=== PATIENT | male | born 1965 | race Caucasian/White ===

== ENCOUNTER 2023-09-29 17:37 | Emergency (ER) | payer BC, SELFPAY ==
[2023-09-29 18:38] VITALS: BP 152/92; PULSE 58; RESP 24; TEMP 36.2; O2SAT 100; BMI 32.1
[2023-09-29] MEDS: IBUPROFEN 200 MG TABLET 400 MG PO (18:50)
[2023-09-29 19:11] LABS: Appearance Urine Cloudy (Clear); Bilirubin Urine Negative (Negative); Blood Urine 3+ (Negative); Color Urine Red (Yellow); Glucose Urine Trace (Negative); Ketones Urine 2+ (Negative); Leukocyte Esterase Urine Negative (Negative); Nitrite Urine Negative (Negative); Protein Urine 2+ (Negative); Urobilinogen Urine 0.2 (0.2-1.0); pH Urine 5.5 (5.0-8.5)
[2023-09-29 19:26] LABS: RBC Urine 50-100 (0-2)
[2023-09-29 19:27] LABS: Bacteria Urine Few; Fine Granular Casts Urine Moderate; Squamous Epithelial Cell Urine Few (None-Few); WBC Urine 0-2 (0-5)
[2023-09-29 21:31] VITALS: BP 162/99; PULSE 68; RESP 16; O2SAT 99
--- NOTE | 2023-09-29 21:32 | CRLHL7_ITS ---
For Patients: As a result of the Century Cures Act, medical imaging exams and procedure reports are released immediately into your electronic medical record. You may view this report before your referring provider. If you have questions, please contact your health care provider. INDICATION: Flank pain. TECHNIQUE: CT abdomen and pelvis without contrast. COMPARISON: None. FINDINGS: Lower chest: Unremarkable. Liver: Normal in size and attenuation. No suspicious masses. Gallbladder and bile ducts: No stones or inflammation. No biliary dilatation. Pancreas: Unremarkable. No mass or inflammation. Spleen: Normal in size. No masses. Adrenal glands: Normal in size. No nodules. Kidneys: A 2 mm stone at the left ureteropelvic junction is causing mild hydronephrosis. Few tiny stones remain in each kidney. GI tract: Unremarkable. Normal in caliber. No sign of mass or inflammation. Normal appendix. Vasculature: Abdominal aorta is normal in caliber. Lymph nodes: No lymphadenopathy. Peritoneum/Abdominal Wall: Unremarkable. No sign of mass or infiltration. No free air or significant free fluid. Pelvis: Unremarkable. No pelvic masses. Bones: Unremarkable for age. IMPRESSION: Small 2 mm stone at the left UPJ causing mild hydronephrosis. Please note that all CT scans at this facility use dose modulation, iterative reconstruction, and/or weight-based dosing when appropriate to reduce radiation dose to as low as reasonably achievable. Dictated by Niels Nails MD @ 09/29/2023 11:07:56 PM (Electronically Signed)
--- NOTE | 2023-09-29 22:00 | ED_ITS ---
HPI - General Adult General Date Seen: 09/29/23 Chief complaint: Flank Pain Stated complaint: Kidney stone likely-blood in urine Time Seen by Provider: 09/29/23 21:42 Source: patient and RN notes reviewed Mode of arrival: ambulatory Limitations: no limitations History of Present Illness HPI narrative: Patient is a 57-year-old male who presents for evaluation of left flank pain onset earlier today. He has a history of a kidney stone on the right remotely and this feels similar. He has had nausea but no vomiting, no urinary symptoms, has felt hot and cold but no documented fever no shaking chills. No urinary symptoms otherwise. General health is good. Related Data Previous Rx's Medication Instructions Recorded tamsulosin 0.4 mg capsule (Flomax) 0.4 mg PO DAILY #10 caps 09/29/23 Allergies Allergy/AdvReac Type Severity Reaction Status Date / Time No Known Drug Allergies Allergy Verified 09/29/23 18:43 Review of Systems Status of ROS: Reports: 6 or more systems reviewed and unremarkable except as noted in History and below PFSH PFSH Social History Non-prescribed substance use: denies use Exam Narrative: Exam Narrative: Vital signs as noted above. In general, an alert, nontoxic male, looks uncomfortable. Head: Normocephalic, atraumatic. Eyes: Pupils are equal reactive. Extraocular movements are full. Conjunctivae are normal. ENT: Mucous membranes are moist. Throat is normal. Neck: Supple without lymphadenopathy. Heart: Regular rate and rhythm. No murmur or rub. Lungs: Clear bilaterally. No increased work of breathing, crackles or wheezes. No CVA tenderness. Abdomen: Soft and nontender. No organomegaly. Extremities: Well perfused. No edema. No calf tenderness. Pulses intact. Neurologic: Patient is alert and oriented to person and place. Speech is fluent. Face is symmetric. Moves all extremities equally. Affect: Normal. Skin: Warm and dry. Well perfused. Const: Vital Signs, click to edit/add: Vital Signs - 24 hr 09/29/23 18:38 09/29/23 21:31 Temperature 97.2 F L Pulse Rate [Right Pulse Oximeter] 58 L 68 Respiratory Rate 24 16 Blood Pressure [Ri ght Upper Arm] 152/92 H 162/99 H Pulse Oximetry 100 99 Oxygen Delivery Me thod Room Air Room Air Documenting provider has reviewed patient's vital signs: yes Course Course ED Course: Patient had a UA obtained while he was in triage, this showed 50-100 red blood cells. I ordered CT scan, by my review this shows a 3 mm stone just distal to the UPJ on the left with some associated hydronephrosis. Renal cyst on the right. Radiology read pending. An IV will be placed, will give some Toradol and morphine as well as Zofran and fluids for symptomatic relief. UA does not show any evidence of infection. Final radiology read as follows:FINDINGS: Lower chest: Unremarkable. Liver: Normal in size and attenuation. No suspicious masses. Gallbladder and bile ducts: No stones or inflammation. No biliary dilatation. Pancreas: Unremarkable. No mass or inflammation. Spleen: Normal in size. No masses. Adrenal glands: Normal in size. No nodules. Kidneys: A 2 mm stone at the left ureteropelvic junction is causing mild hydronephrosis. Few tiny stones remain in each kidney. GI tract: Unremarkable. Normal in caliber. No sign of mass or inflammation. Normal appendix. Vasculature: Abdominal aorta is normal in caliber. Lymph nodes: No lymphadenopathy. Peritoneum/Abdominal Wall: Unremarkable. No sign of mass or infiltration. No free air or significant free fluid. Pelvis: Unremarkable. No pelvic masses. Bones: Unremarkable for age. IMPRESSION: Small 2 mm stone at the left UPJ causing mild hydronephrosis. Patient feels significantly improved after medications. Okay to discharge, will have him strain urine, push fluids. I prescribed Flomax, oxycodone, Zofran. Recommend ibuprofen 400 mg 3 times daily. Discussed reasons to return such as fevers, shaking chills, vomiting, severe uncontrolled pain. Urology follow-up if he does not pass the stone over the next week or so. Vital Signs Vital signs: Initial Vital Signs Temperature 97.2 F L 09/29/23 18:38 Temperature Source Temporal Artery Scan 09/29/23 18:38 Pulse Rate 58 L 09/29/23 18:38 Respiratory Rate 24 09/29/23 18:38 Blood Pressure 152/92 H 09/29/23 18:38 Blood Pressure Mean 112 H 09/29/23 18:38 Blood Pressure Position Sitting 09/29/23 18:38 Pulse Oximetry 100 09/29/23 18:38 Oxygen Delivery Method Room Air 09/29/23 18:38 Vital Signs Temperature 97.2 F L 09/29/23 18:38 Pulse Rate 58 L 09/29/23 18:38 Respiratory Rate 24 09/29/23 18:38 Blood Pressure 152/92 H 09/29/23 18:38 Pulse Oximetry 100 09/29/23 18:38 Oxygen Delivery Method Room Air 09/29/23 18:38 Temperature 97.2 F L 09/29/23 18:38 Pulse Rate 68 09/29/23 21:31 Respiratory Rate 16 09/29/23 21:31 Blood Pressure 162/99 H 09/29/23 21:31 Pulse Oximetry 99 09/29/23 21:31 Oxygen Delivery Method Room Air 09/29/23 21:31 Medications Administered Medications: Discontinued Medications Generic Name Dose Route Start Last Admin Trade Name Freq PRN Reason Stop Dose Admin Sodium Chloride 1,000 mls @ 1,000 mls/hr 09/29/23 22:00 09/29/23 22:31 0.9 % Sodium Chloride 1000 Ml IV 09/29/23 22:59 1,000 mls/hr .Q1H DEB Administration Ibuprofen 400 mg 09/29/23 18:47 09/29/23 18:50 Ibuprofen 200 Mg Tablet PO 09/29/23 18:48 400 mg ONCE ONE Administration Ketorolac Tromethamine 15 mg 09/29/23 21:54 09/29/23 22:30 Ketorolac 15 Mg/Ml Inj IVP 09/29/23 21:55 15 mg ONCE ONE Administration Morphine Sulfate 4 mg 09/29/23 21:54 09/29/23 22:30 Morphine 4 Mg/Ml Inj IVP 09/29/23 21:55 4 mg ONCE ONE Administration Ondansetron HCl 4 mg 09/29/23 21:54 09/29/23 22:30 Ondansetron 2 Mg/Ml Inj IVP 09/29/23 21:55 4 mg ONCE ONE Administration Medical Decision Making Lab Data Labs: Lab Results 09/29/23 Range/Units 18:43 Urine Color Red A (Yellow) Urine Appearance Cloudy A (Clear) Urine pH 5.5 (5.0-8.5) Ur Specific [place] 1.020 (1.000-1.030) Urine Protein 2+ A (Negative) Urine Glucose (UA) Trace A (Negative) Urine Ketones 2+ A (Negative) Urine Blood 3+ A (Negative) Urine Nitrite Negative (Negative) Urine Bilirubin Negative (Negative) Urine Urobilinogen 0.2 (0.2-1.0) Ur Leukocyte Esterase Negative (Negative) Urine RBC 50-100 A (0-2) Urine WBC 0-2 (0-5) Ur Squamous Epith Cells Few (None-Few) Urine Bacteria Few A (None) Fine Granular Casts Moderate A (None) Urine Yeast Few A (None) Discharge Plan Discharge Clinical Impression: Kidney stone on left side Condition: Improved Instructions: Kidney Stones (ED) Additional Instructions: Push fluids, strain urine. Ibuprofen 400 mg 3 times daily with food for the next few days or until you pass the stone. Oxycodone if needed for uncontrolled pain. Zofran if needed for nausea. Flomax as prescribed. Urology follow-up if you do not pass the stone over the next week. Return to the ER at any time for severe uncontrolled pain, uncontrolled vomiting, fever, chills or other acute worsening. Prescriptions: New tamsulosin [Flomax] 0.4 mg capsule 0.4 mg PO DAILY Qty: 10 2RF Follow Up/Referrals: Provider,Not a Local [Primary Care Provider] - Stand Alone Forms: Operation Supply Drop Info Instructions
[2023-09-29] MEDS: KETOROLAC 15 MG/ML inj IVP (22:30)
[2023-09-29] MEDS: ONDANSETRON 2 MG/ML inj 4 MG IVP (22:30)
[2023-09-29] MEDS: MORPHINE 4 MG/ML INJ IVP (22:30)
[2023-09-29] MEDS: 0.9 % SODIUM CHLORIDE 1000 ml 1,000 ML IV (22:31)
== END 2023-09-29 23:43 | disposition home or self-care (01) ==
PROVIDERS: Emergency Provider Emergency Medicine
DX: N20.0 Calculus of kidney (principal)
CPT/HCPCS: 74176; 81003; 81015; 87086; 96361; 96374; 96375; 99284; A9270; J1885; J2270; J2405; J7030